=== PATIENT | female | born 1935 | race Caucasian/White ===

== ENCOUNTER → 2016-10-07 | Outpatient (CLI) | payer OTHER, MEDICARE ==
[2016-10-07 17:17] LABS: BASO % 0.3 %; BASO ABS # 0.02 K/uL (0-0.2); COMPLETE YES; EOS % 1.9 %; HEMATOCRIT 39.5 % (37-47); IG% 0.1 %; LYMPH % 26.4 %; MEAN CORPUSCULAR HEMOGLOBIN 31.7 pg (25-34); MEAN CORPUSCULAR HGB CONC 33.7 g/dl (32-36); MEAN PLATELET VOLUME 10.1 fL (7.4-10.4); MONO % 7.5 %; NEUT % 63.8 %; PLATELET COUNT 230 K/uL (130-400); WHITE BLOOD COUNT 6.83 K/uL (4.8-10.8)
[2016-10-10 22:30] LABS: RECEPTOR BINDING AB <0.30 nmol/L (<=0.30)
[2016-10-13 10:19] LABS: ANTI-STRIATED MUSCLE NEGATIVE (NEGATIVE); C-REACTIVE PROT HIGHSEN 6.4 MG/L; RECEPTOR BINDING AB <0.30 nmol/L
--- NOTE | 2016-10-13 12:14 | CODING QUERY MEDICAL NECESSITY ---
CQSUPPORTING DIAGNOSIS NEEDED A supporting diagnosis is required for the test/procedure performed on this patient in order for us to be reimbursed by the patient's insurance. Please provide a supporting diagnosis for the following test/procedure listed below next to the test name along with your signature. *If there is no additional diagnosis for this patient that would support the following test/procedure please document that below next to the test/procedure. Test(s)/Procedure(s) that require a supporting diagnosis: DOS 10/07/16 C-REACTIVE PROTEIN HIGH SENSITIVITY TESTING Provider Signature: Date: Thank you Rebeka [facility] Once completed, please kindly fax back to [phone] For questions please call [phone]
== END | disposition home or self-care (01) ==
LOC: C.LABBC 13:42
PROVIDERS: ATTEND Ophthalmology
DX: H53.2 Diplopia (principal)